=== PATIENT | male | born 1955 | race Caucasian/White ===

== ENCOUNTER → 2017-09-10 | Outpatient (CLI) | payer BC | END | disposition home or self-care (01) | LOC: KCIC 10:02 | DX: S69.81XD Other specified injuries of right wrist, hand and finger(s), subsequent encounter (principal); M18.31 Unilateral post-traumatic osteoarthritis of first carpometacarpal joint, right hand; X58.XXXD Exposure to other specified factors, subsequent encounter | CPT/HCPCS: 73130 ==